=== PATIENT | female | born 1960 ===

== ENCOUNTER → 2023-12-19 | Day surgery (SDC) | payer OTHER ==
[~2023-12-19] VITALS: Ht 165.1 cm; Wt 154.2 kg
[~2023-12-19] MED LIST: BAYER ASPIRIN C81 MG PO; BUSPAR15 MG PO; Balanced Salt Solution 500 ML OPH SCH; CIMETIDINE400 M1 PO; COREG12.5 M1 PO; Cefuroxime Sodium 5 MG in BALANCED SALT IRRIG SOLN NO.2 0.5 ML,SYRINGE, DISPOSABLE, 10 ... IO SCH; ELIQUIS5 M1 PO; IMDUR SA30 MG PO; LASIX20 MG PO; MAGOX 400400 MG PO; Midazolam Hydrochloride 2 MG/2 ML VIAL IV ONE; NEURONTIN400 MG PO; NISOLDIPINE30 MG PO; OFLOXACIN 0.3% 5 ML BOTTLE ONE; OFLOXACIN 0.3% 5 ML BOTTLE OPH SCH; PHENYLEPHRINE/KETOROLAC 4 ML in Balanced Salt Solution 500 ML OPH SCH; POVIDONE IODINE 5% OPHTHALMIC 30 ML BOTTLE OPH ONE; POVIDONE IODINE 5% OPHTHALMIC 30 ML BOTTLE OPH SCH; PROTONIX40 MG PO; Phenylephrine Hydrochloride 2 ML BOT OPH ONE; Phenylephrine Hydrochloride 2 ML BOT OPH SCH; Proparacaine Hydrochloride 15 ML BOT OPH ONE; Proparacaine Hydrochloride 15 ML BOT OPH SCH; ROPINIROLE HYDRO3 MG PO; SODIUM CHLORIDE 0.9% 1,000 ML IV SCH; SYNTHROID,LEV175 MCG PO; TROPICAMIDE 3 ML BOT OPH ONE; TROPICAMIDE 3 ML BOT OPH SCH; Tetracaine Hydrochloride 0.5% 4 ML BOT OPH ONE; Tetracaine Hydrochloride 0.5% 4 ML BOT OPH SCH; VENT7GM INH; ZOLOFT50 MG PO; prednisoLONE acetate 1% OPHTHALMIC 5 ML BOT OPH ONE; prednisoLONE acetate 1% OPHTHALMIC 5 ML BOT OPH SCH
[2023-12-19 13:17] VITALS: BP 169/85
[2023-12-19 13:49] VITALS: BP 139/76
[2023-12-19 14:05] VITALS: BP 126/53
[2023-12-19 14:17] VITALS: BP 136/51
== END | disposition home or self-care (01) ==
LOC: SDC 12-14 09:30
PROVIDERS: ATTEND Ophthalmology
DX: H25.11 Age-related nuclear cataract, right eye (principal); I10 Essential (primary) hypertension; K21.9 Gastro-esophageal reflux disease without esophagitis; F41.9 Anxiety disorder, unspecified; J44.9 Chronic obstructive pulmonary disease, unspecified; F32.A Depression, unspecified; E03.9 Hypothyroidism, unspecified; Z90.49 Acquired absence of other specified parts of digestive tract; Z95.0 Presence of cardiac pacemaker; Z98.84 Bariatric surgery status; Z98.890 Other specified postprocedural states; Z88.5 Allergy status to narcotic agent; Z88.8 Allergy status to other drugs, medicaments and biological substances; Z88.2 Allergy status to sulfonamides; Z79.890 Hormone replacement therapy; Z79.82 Long term (current) use of aspirin; Z79.899 Other long term (current) drug therapy

== ENCOUNTER → 2024-01-16 | Day surgery (SDC) | payer OTHER ==
[~2024-01-16] VITALS: Ht 165.1 cm; Wt 154.2 kg
[~2024-01-16] MED LIST changes: +Dexamethasone/Tobramycin OPHTHALMIC 2.5 ML BOTTLE ONE; -OFLOXACIN 0.3% 5 ML BOTTLE OPH SCH; +TETRACAINE HCL 10 DROP BOT OPH SCH; +TOBRAMYCIN 2.5 ML BOT OPH SCH
[2024-01-16 13:00] VITALS: BP 129/75
[2024-01-16 14:21] VITALS: BP 121/64
[2024-01-16 14:36] VITALS: BP 159/68
[2024-01-16 14:51] VITALS: BP 131/65
== END | disposition home or self-care (01) ==
LOC: SDC 01-14 09:30
PROVIDERS: ATTEND Ophthalmology
DX: H25.12 Age-related nuclear cataract, left eye (principal); E03.9 Hypothyroidism, unspecified; J44.9 Chronic obstructive pulmonary disease, unspecified; K21.9 Gastro-esophageal reflux disease without esophagitis; F41.9 Anxiety disorder, unspecified; F32.A Depression, unspecified; Z88.2 Allergy status to sulfonamides; Z88.5 Allergy status to narcotic agent; Z88.8 Allergy status to other drugs, medicaments and biological substances; Z98.84 Bariatric surgery status; Z95.0 Presence of cardiac pacemaker; Z98.890 Other specified postprocedural states; Z79.890 Hormone replacement therapy; Z79.82 Long term (current) use of aspirin; Z79.899 Other long term (current) drug therapy